=== PATIENT | female | born 1965 | race Caucasian/White ===

== ENCOUNTER 2018-09-16 23:19 | Emergency (ER) | payer SELFPAY ==
[~2018-09-16] VITALS: Ht 157.5 cm; Wt 63.5 kg
[2018-09-16 23:25] VITALS: BP 160/90
--- NOTE | 2018-09-16 23:25 | NUR ---
TO BED # 08 AMBULATORY
[2018-09-16 23:30] VITALS: BP 160/90
[2018-09-16] MEDS ORDERED: SULFAMETH/TRIMETH DS 800/160MG 1 TAB PO ONE (23:35)
[2018-09-16] MEDS ORDERED: CEPHALEXIN 500 MG CAP PO ONE (23:35)
--- NOTE | 2018-09-16 23:45 | NUR ---
Patient discharged with v/s stable. Written and verbal after care instructions given and explained. Patient alert, oriented and verbalized understanding of instructions. Ambulatory with steady gait. All questions addressed prior to discharge. ID band removed. Patient advised to follow up with PMD. Rx of keflex and bactrim given. Patient educated on indication of medication including possible reaction and side effects. Opportunity to ask questions provided and answered.
== END 2018-09-16 23:45 | disposition home or self-care (01) ==
LOC: MED 23:19
DX: L60.0 Ingrowing nail (principal)
CPT/HCPCS: 99283

== ENCOUNTER 2019-01-12 15:33 | Emergency (ER) | payer MEDICAID ==
[~2019-01-12] VITALS: Ht 157.5 cm; Wt 68.0 kg
[2019-01-12 15:51] VITALS: BP 130/83
--- NOTE | 2019-01-12 15:56 | NUR ---
C/O DEVELOPED REDNESS WITH BURNING SENSATION TO PALMS TODAY DENIES CONTACT WITH NEW SOLUTION OR PRODUCT----
[2019-01-12] MEDS ORDERED: KETOROLAC 60 MG/2 ML VIAL IM ONE (16:45)
[2019-01-12] MEDS ORDERED: predniSONE 20 MG TAB PO ONE (16:45)
--- NOTE | 2019-01-12 17:08 | NUR ---
EVANGELINA Jones evaluating patient.
[2019-01-12 17:48] VITALS: BP 124/79
== END 2019-01-12 17:50 | disposition home or self-care (01) ==
LOC: MED 15:33
DX: M79.642 Pain in left hand (principal); M79.641 Pain in right hand; I10 Essential (primary) hypertension
CPT/HCPCS: 99283; J1885; J7512; 96372